=== PATIENT | female | born 1945 | race Caucasian/White ===

== ENCOUNTER 2022-04-26 13:16 | Emergency (ER) | payer MEDICAID, OTHER ==
[~2022-04-26] VITALS: Ht 157.5 cm; Wt 75.0 kg
[2022-04-26 13:54] VITALS: BP 116/82
[2022-04-26] MEDS ORDERED: ACETAMINOPHEN 325MG TABLET PO ONE (15:30)
[2022-04-26] MEDS ORDERED: MELO-105 MT (17:23)
== END 2022-04-26 18:41 | disposition home or self-care (01) ==
LOC: ER 13:26
DX: M25.512 Pain in left shoulder (principal); M25.511 Pain in right shoulder; M54.89 Other dorsalgia
CPT/HCPCS: 71045; 73030; 99284